=== PATIENT | female | born 1990 | race Caucasian/White ===

== ENCOUNTER 2017-06-20 16:53 | Inpatient (IN) | payer BC ==
[~2017-06-20] VITALS: Ht 165.1 cm; Wt 92.3 kg
[~2017-06-20 16:53] MED LIST: HYDR-3240 PO; IBUP-1222 PO
[2017-06-27] MEDS ORDERED: OXYTOCIN 30U/ 0.9% NaCL 500ML 500 ML IV ONE (08:18)
[2017-06-27] MEDS ORDERED: ONDANSETRON 2MG/ML, 2ML IVPush PRN (08:30)
[2017-06-27] MEDS ORDERED: FENTANYL PF 100 MCG/2ML IVPush PRN (08:30)
[2017-06-27 08:47] LABS: HEMATOCRIT 42.7 % (34.6-47.8); HEMOGLOBIN 14.7 g/dL (11.7-16.4); WHITE BLOOD COUNT 10.3 x10^3/uL (3.4-10)
[2017-06-27] MEDS ORDERED: PLEASE ENTER HEIGHT AND WEIGHT MC SCH (09:00)
[2017-06-27] MEDS ORDERED: OXYTOCIN 30U/ 0.9% NaCL 500ML 500 ML ONE (09:04)
[2017-06-27] MEDS ORDERED: OXYTOCIN 30U/ 0.9% NaCL 500ML 500 ML IV PRN (09:19)
[2017-06-27] MEDS ORDERED: PREN1TAB60 PO (09:19)
[2017-06-27] MEDS: LACTATED RINGERS 1,000 ML IV SCH ×4 (09:24→23:12)
[2017-06-27 09:31] VITALS: BP 105/67
[2017-06-27] MEDS ORDERED: NEWBORN KIT ONE (11:07)
[2017-06-27] MEDS ORDERED: FENTANYL PF 100 MCG/2ML ONE (13:47)
[2017-06-27] MEDS ORDERED: FENTANYL/BUPIV./NS/PF 250 ML EPIDCONT ONE (14:21)
[2017-06-27] MEDS ORDERED: LIDOCAINE/PF 1.5%-EPI 1:200K, 30ML ONE (14:22)
[2017-06-27] MEDS: FENTANYL/BUPIV./NS/PF 250 ML EPIDCONT SCH (15:12)
[2017-06-27] MEDS ORDERED: LACTATED RINGERS 1,000 ML IVBOLUS PRN (15:30)
[2017-06-27] MEDS ORDERED: ONDANSETRON 2MG/ML, 2ML ONE (15:42)
[2017-06-27] MEDS ORDERED: IBUPROFEN 600 MG TABLET ONE (19:58)
[2017-06-27] MEDS: OXYTOCIN 30U/ 0.9% NaCL 500ML 500 ML IV SCH (19:59)
[2017-06-27] MEDS ORDERED: CALCIUM CARBONATE 500 MG TAB.CHEW PO PRN (20:00)
[2017-06-27] MEDS ORDERED: OXYcodone IR 5MG TABLET PO PRN ×2 (20:00)
[2017-06-27] MEDS ORDERED: DOCUSATE 100 MG CAPSULE PO PRN (20:00)
[2017-06-27] MEDS ORDERED: ONDANSETRON 2MG/ML, 2ML IV PRN (20:00)
[2017-06-27] MEDS ORDERED: MISOPROSTOL 200 MCG TABLET PR PRN (20:00)
[2017-06-27] MEDS ORDERED: MAGNESIUM HYDROXIDE 8%, 30ML UDC PO PRN (20:00)
[2017-06-27] MEDS: IBUPROFEN 600 MG TABLET PO PRN (20:00)
[2017-06-27] MEDS ORDERED: OXYcodone/APAP 5/325MG TABLET PO PRN (20:00)
[2017-06-27] MEDS ORDERED: RHOGAM FROM BLOOD BANK 1 NOTE EA IM/IV ONE (20:00)
[2017-06-27] MEDS ORDERED: OXYcodone/APAP 5/325MG TABLET ONE (20:20)
[2017-06-27 22:00] VITALS: BP 91/64
[2017-06-28] MEDS: OXYTOCIN 30U/ 0.9% NaCL 500ML 500 ML IV SCH ×2 (00:37→15:59)
[2017-06-28] MEDS: FENTANYL/BUPIV./NS/PF 250 ML EPIDCONT SCH (00:37)
[2017-06-28 02:00] VITALS: BP 94/61
[2017-06-28] MEDS: IBUPROFEN 600 MG TABLET PO PRN ×2 (02:21→09:02)
[2017-06-28] MEDS: OXYcodone/APAP 5/325MG TABLET PO PRN ×4 (02:34→18:02)
[2017-06-28 06:47] LABS: HEMATOCRIT 37.1 % (34.6-47.8); HEMOGLOBIN 12.6 g/dL (11.7-16.4); WHITE BLOOD COUNT 12.8 x10^3/uL (3.4-10)
[2017-06-28 07:15] VITALS: BP 91/49
[2017-06-28] MEDS ORDERED: PRENATAL VIT/IRON/FA 1 EACH TABLET ONE (07:48)
[2017-06-28] MEDS ORDERED: PRENATAL VIT/IRON/FA 1 EACH TABLET PO SCH (09:00)
[2017-06-28] MEDS ORDERED: OXYC-302 PO (17:16)
[2017-06-28] MEDS ORDERED: DOCU-131 PO (17:17)
[2017-06-28] MEDS ORDERED: IBUP-1223 PO (17:18)
== END 2017-06-28 19:30 | disposition home or self-care (01) | DRG 775 ==
LOC: LDIP 06-27 08:14 → 2NW 06-27 21:51
PROVIDERS: ADMIT Obstetrics & Gynecology; ATTEND Obstetrics & Gynecology
PROC: 10E0XZZ Delivery of Products of Conception, External Approach (ICD-10-PCS; principal; 2017-06-27)
PROC: 3E0S3BZ Introduction of Anesthetic Agent into Epidural Space, Percutaneous Approach (ICD-10-PCS; 2017-06-27)
PROC: 00HU33Z Insertion of Infusion Device into Spinal Canal, Percutaneous Approach (ICD-10-PCS; 2017-06-27)
DX: O48.0 Post-term pregnancy (principal); O76 Abnormality in fetal heart rate and rhythm complicating labor and delivery; Z37.0 Single live birth; O77.0 Labor and delivery complicated by meconium in amniotic fluid; Z3A.41 41 weeks gestation of pregnancy
CPT/HCPCS: 36415; 82803; 85025; 86850; 86900; J2405; J3010; J2590; J7120

== ENCOUNTER 2019-04-05 10:55 | Outpatient (CLI) | payer BC ==
[~2019-04-05 10:55] MED LIST changes: +DOCU-131 PO; +IBUP-1223 PO; +OXYC-302 PO; +PREN1TAB60 PO
[2019-04-05] MEDS ORDERED: No meds per pt. (11:20)
[2019-04-05 12:01] LABS: ALANINE AMINOTRANSFERASE 22 U/L (12-78); ALBUMIN 4.4 g/dL (3.4-5.0); ANION GAP 13 mmol/L (5-15); CALCIUM 6.9 mg/dL (8.5-10.1); CHLORIDE 111 mmol/L (98-107); CREATININE 0.84 mg/dL (0.55-1.02)
[2019-04-05 12:06] LABS: ALKALINE PHOSPHATASE 65 U/L (45-117); BILIRUBIN,TOTAL 0.4 mg/dL (0.2-1.0); TOTAL PROTEIN 7.9 g/dL (6.4-8.2)
[2019-04-05 12:09] LABS: MICROSCOPIC AUTO
[2019-04-05 12:11] LABS: BASOPHILS # (AUTO) 0.03 x10^3/uL (0-0.1); BASOPHILS % (AUTO) 1 % (0-1); EOSINOPHILS # (AUTO) 0.18 x10^3/uL (0-0.4); EOSINOPHILS % (AUTO) 3 % (1-7); LYMPHOCYTES # (AUTO) 1.86 x10^3/uL (1-3.4); LYMPHOCYTES % (AUTO) 33 % (22-44); MD NO; MEAN CORPUSCULAR HEMOGLOBIN 29.7 pg (27.0-34.8); MEAN CORPUSCULAR HGB CONC 33.2 g/dL (32.4-35.8); MEAN CORPUSCULAR VOLUME 89.5 fL (80-100); MEAN PLATELET VOLUME 8.5 fL (7.4-10.4); MONOCYTES # (AUTO) 0.46 x10^3/uL (0.2-0.8); MONOCYTES % (AUTO) 8 % (2-9); NEUTROPHILS % (AUTO) 55 % (42-75); PLATELET COUNT 254 x10^3/uL (130-400); RED BLOOD COUNT 4.91 x10^6/uL (3.82-5.3); RED CELL DISTRIBUTION WIDTH 13.2 % (9.6-15.2)
[2019-04-05 12:13] LABS: CULTURE INDICATED? YES
[2019-04-11] MEDS ORDERED: FENTANYL PF 100 MCG/2ML IV PRN (10:00)
[2019-04-11] MEDS ORDERED: HYDROmorphone 1 MG/ML, 1ML INJ IV PRN (10:00)
[2019-04-11] MEDS ORDERED: ONDANSETRON 2MG/ML, 2ML IVPush PRN (10:00)
[2019-04-11] MEDS ORDERED: MEPERIDINE/PF 25MG/0.5ML IVPush PRN (10:00)
[2019-04-11] MEDS ORDERED: LABETALOL 5 MG/ML SYRINGE IV PRN (10:00)
[2019-04-11] MEDS ORDERED: PLEASE ENTER HEIGHT AND WEIGHT MC SCH (10:00)
[2019-04-11] MEDS ORDERED: OXYcodone 5 MG/5 ML ORAL.SOL UDC PO PRN (10:00)
[2019-04-11] MEDS ORDERED: MIDAZOLAM 1 MG/ML, 2ML IV PRN (10:00)
== END 2019-04-05 23:59 | disposition home or self-care (01) ==
LOC: STAR 10:55
PROVIDERS: ATTEND Obstetrics & Gynecology
DX: Z30.2 Encounter for sterilization (principal)
CPT/HCPCS: 36415; 80053; 81001; 84703; 85025; 87086

== ENCOUNTER 2019-04-11 09:56 | Day surgery (SDC) | payer BC ==
[~2019-04-11] VITALS: Ht 165.1 cm; Wt 85.0 kg
[2019-04-11 10:51] VITALS: BP 101/66
== END 2019-04-11 15:30 | disposition home or self-care (01) ==
LOC: OUT 09:56
PROVIDERS: ATTEND Obstetrics & Gynecology
DX: Z30.2 Encounter for sterilization (principal); Z30.432 Encounter for removal of intrauterine contraceptive device; K76.0 Fatty (change of) liver, not elsewhere classified; Z72.89 Other problems related to lifestyle; Z82.49 Family history of ischemic heart disease and other diseases of the circulatory system; Z83.49 Family history of other endocrine, nutritional and metabolic diseases
CPT/HCPCS: 36415; 58301; 58670; 81025; 86850; 86900; J1100; J2175; J2250; J2405; J2704; J2765; J3010; J3490; J7120